=== PATIENT | female | born 1935 | race Caucasian/White ===

== ENCOUNTER 2017-12-23 20:09 | Emergency (ER) | payer MEDICARE, OTHER ==
[2017-12-23 20:20] VITALS: O2SAT 96
--- NOTE | 2017-12-23 21:05 | ERPHSYRPT ---
- History of Present Illness Time Seen by Provider: 12/23/17 21:00 Source: patient Exam Limitations: no limitations Patient Subjective Stated Complaint: PT STATES SHE WAS STEPPING OUT THE DOOR, FELT SLIGHTLY LIGHTHEADED, LOST HER BALANCE AND FELL FORWARD INTO A PORCHSWING AND THEN ROLLED OFF ONTO THE GROUND; CO LOW BACK PAIN DEVELOPMENT LEAD Triage Nursing Assessment: PT A&O X3; SKIN P, W, & D; NO OBVIOUS DISTRESS OR DISCOMFORT NOTED; FAMILY AT BEDSIDE; PT DENIES HITTING HER HEAD OR ANY LOSS OF CONSCIOUSNESS. Physician History: patient with chronic back pain presents to ED after fall walking out onto porch. Patient states upon arising she noted mild dizziness then stumbled down step hitting her back against swing. patient denies any head injuries or loss of consciousness. Denies any chest, abdominal,, pelvis or extremities injuries/ pain. Patient denies any chest pain, palpitation, short of breath, diaphoresis , nausea, vomiting, weakness, headache, no facial/focal deficit,, no abdominal/ back pain or urinary symptoms. Occurred: just prior to arrival Reason for Fall: lightheaded, lost balance Injuries/Pain Location: back Loss of Consciousness: no loss of consciousness Quality: aching Severity of Pain-Max: mild Severity of Pain-Current: mild Modifying Factors: Improves With: pain medication (Given Morphine by EMS) Associated Symptoms (Fall): back pain, lightheadedness, No extremity injury ( intermittent), No muscle spasms, No nausea, No shortness of breath, No slurred speech Allergies/Adverse Reactions: ceftriaxone sodium [From Rocephin] Allergy (Mild, Verified 10/17/13 22:22) Rash codeine Allergy (Mild, Verified 10/17/13 22:22) HALLUCINATE grapefruit Allergy (Mild, Verified 12/23/17 20:21) Iodinated Contrast- Oral and IV Dye Allergy (Mild, Verified 12/23/17 20:21) levofloxacin [From Levaquin] Allergy (Mild, Verified 10/17/13 22:22) CRAZY FEELING Home Medications: Aspirin 81 gm Chew [Baby Aspirin 81 mg Chew] 81 mg PO DAILY 10/17/13 [ History] Escitalopram Oxalate 10 mg [Lexapro 10 MG] 10 mg PO DAILY 10/17/13 [History] Lisinopril 10 mg [Zestril 10 MG] 20 mg PO DAILY 10/17/13 [History] Metoprolol Tartrate 25 mg [Lopressor 25MG Tab] 25 mg PO BID 10/17/13 [ History] Montelukast Sodium 10 mg [Singulair 10 MG] 10 mg PO DAILY 10/17/13 [History] Omeprazole 20 MG [Prilosec 20 mg] 40 mg PO DAILY 10/17/13 [History] Tramadol HCl 50 mg [Ultram 50 mg] 50 mg PO QID PRN 10/17/13 [History] Levothyroxine Sodium [Tirosint] 112 mcg PO DAILY 12/23/17 [History] Hx Tetanus, Diphtheria Vaccination/Date Given: Yes Hx Influenza Vaccination/Date Given: Yes Hx Pneumococcal Vaccination/Date Given: Yes Immunizations Up to Date: Yes - Review of Systems Constitutional: No Symptoms, No Fever, No Chills, No Weakness Eyes: No Symptoms Ears, Nose, & Throat: No Symptoms Respiratory: No Symptoms, No Cough, No Dyspnea Cardiac: No Symptoms, No Chest Pain, No Edema, No Syncope Abdominal/Gastrointestinal: No Symptoms, No Abdominal Pain, No Nausea, No Vomiting, No Diarrhea Genitourinary Symptoms: No Symptoms, No Dysuria Musculoskeletal: Back Pain, Fall, No Neck Pain Skin: No Symptoms, No Rash Neurological: No Dizziness, No Focal Weakness, No Headache, No Sensory Changes Psychological: No Symptoms Endocrine: No Symptoms Hematologic/Lymphatic: No Symptoms Immunological/Allergic: No Symptoms All Other Systems: Reviewed and Negative - Past Medical History Neurological History: No Pertinent History ENT History: Cataracts Cardiac History: Arrhythmia Respiratory History: No Pertinent History Endocrine Medical History: No Pertinent History, Hypothyroidism Musculoskeletal History: Arthritis, Other GI Medical History: No Pertinent History History: No Pertinent History Psycho-Social History: No Pertinent History Female Reproductive Disorders: No Pertinent History Other Medical History: DETERIATED DISK IN BACK - Past Surgical History Past Surgical History: Yes Cardiac: Internal Defibrillator, Pacemaker, Vascular Surgery Gastrointestinal: Appendectomy, Cholecystectomy Female Surgical History: Hysterectomy Other Surgical History: VEING STRIPPING TO LEFT LEG - Social History Smoking Status: Never smoker Exposure to second hand smoke: No Drug Use: none Patient Lives Alone: Yes - Female History Hx Last Menstrual Period: HYSTER - Nursing Vital Signs Nursing Vital Signs: Initial Vital Signs Temperature 97.9 F 12/23/17 20:12 Pulse Rate 60 12/23/17 20:12 Respiratory Rate 16 12/23/17 20:12 Blood Pressure 104/39 12/23/17 20:12 O2 Sat by Pulse Oximetry 96 12/23/17 20:12 Pain Scale Pain Intensity 0 - [place] Coma Score Best Eye Response ([place]): (4) open spontaneously Best Verbal Response ([place]): (5) oriented Best Motor Response ([place]): (6) obeys commands [place] Total: 15 - Physical Exam General Appearance: no apparent distress, alert Head Injury: no evidence of injury Eye Exam: PERRL/EOMI ENT Exam: airway nml Neck Exam: normal inspection, No tenderness Respiratory/Chest Exam: normal breath sounds, No chest tenderness, No respiratory distress Cardiovascular Exam: normal heart sounds, regular rate/rhythm Gastrointestinal Exam: soft, No tenderness, No distention, No guarding, No ecchymosis Back Exam: normal inspection, vertebral tenderness (minimal if any to upper lumbar area. Patient without any severe reaction to neck/spine palpation) Extremity Exam: normal inspection, normal range of motion, pelvis stable, No deformities Neurologic Exam: alert, oriented x 3, cooperative, sensation nml, No motor deficits Skin Exam: normal color, warm, dry SpO2: 96 Oxygen Delivery: Room Air - Course Nursing assessment & vital signs reviewed: Yes - Progress Progress: improved Progress Note: 12/23/17 21:07 offered x-rays of lumbar, but declined at this time due to minimal pain. Counseled pt/family regarding: diagnosis - Departure Time of Disposition: 21:07 Departure Disposition: Home Clinical Impression: Back contusion Condition: Stable Critical Care Time: No Referrals: DOCTOR,NO FAMILY [Primary Care Provider] - Instructions: Contusion (DC) Additional Instructions: May take Motrin 800 mg every 8 hours with food and/or Tylenol 1 g every 4 hours for pain/discomfort. Follow-up with your DrLove in 2-3 days. Return for worse pain, numbness, dizziness, weakness or any problems
[2017-12-23 21:15] VITALS: BP 108/66; PULSE 62
== END 2017-12-23 21:13 | disposition home or self-care (01) ==
LOC: ED 20:09
DX: S30.0XXA Contusion of lower back and pelvis, initial encounter (principal); R42 Dizziness and giddiness; Z79.899 Other long term (current) drug therapy; W18.30XA Fall on same level, unspecified, initial encounter; Y92.008 Other place in unspecified non-institutional (private) residence as the place of occurrence of the external cause
CPT/HCPCS: 99283

== ENCOUNTER 2017-12-27 23:38 | Observation (INO) | payer MEDICARE, OTHER ==
[2017-12-27] MEDS ORDERED: BABY ASPIRIN 81 MG CHEW PO ONE (23:42)
--- NOTE | 2017-12-27 23:58 | ERPHSYRPT ---
- History of Present Illness Time Seen by Provider: 12/27/17 23:53 Historian: patient Exam Limitations: no limitations Patient Subjective Stated Complaint: pt states she began feeling bad and having chest pain at approx 1800. states her pain radiates around lt side of chest and to back. Triage Nursing Assessment: pt alert and oriented, answers questions approp. respirations nonlabored. pt reports increased apin with inhalation. tenderness ntoed to lt side of back. bruising noted to bilat arms, chest- pt states from fall on monday. Physician History: 82-year-old white female with history of cataracts, arrhythmia, hypoglycemia, arthritis, degenerative disc disease, pacer defibrillator. She arrives with complaint of pain in her anterior chest radiating around to her left side symptoms since 6 PM she does state that she fell Monday she had soreness in the area however now at approximate 6 PM she had the pain described as above rated 10 out of 10 Now feeling better. 4 out of 10 she states she took one baby aspirin prior to arrival. She states she has no shortness of breath nausea or vomiting past medical history includes cataracts, arrhythmia, hypothyroidism, arthritis, degenerative disc disease. Past surgical history includes pacer defibrillator, vein stripping, appendectomy , cholecystectomy, hysterectomy. Social history patient denies tobacco alcohol or illicit drug use . Timing/Duration: other (fell last Monday 4 days ago soreness in his chest severe pain tonight at 6:30 PM) Activities at Onset: none Quality: sharpness Location: substernal, other (Substernal and left contreras) Chest Pain Radiation: no radiation Severity of Pain-Max: moderate Severity of Pain-Current: mild Modifying Factors: Improves With: nothing Associated Symptoms: hurts to breathe, No nausea, No vomiting, No palpitations, No heartburn, No abdominal pain, No shortness of breath, No cough, No diaphoresis, No chills, No fever, No fatigue, No weakness, No swelling/lump in chest, No syncope, No rash, No headache, No dizziness, No edema, No back pain Nitro Today/Relief: no nitro taken today Aspirin Treatment Today: 81 mg x 1 (81 mg at home), 81 mg x 3 (243 mg in the ER) Allergies/Adverse Reactions: ceftriaxone sodium [From Rocephin] Allergy (Mild, Verified 12/27/17 23:54) Rash codeine Allergy (Mild, Verified 12/27/17 23:54) HALLUCINATE grapefruit Allergy (Mild, Verified 12/27/17 23:54) Iodinated Contrast- Oral and IV Dye Allergy (Mild, Verified 12/27/17 23:54) levofloxacin [From Levaquin] Allergy (Mild, Verified 12/27/17 23:54) CRAZY FEELING Home Medications: Aspirin 81 gm Chew [Baby Aspirin 81 mg Chew] 81 mg PO DAILY 10/17/13 [ History] Escitalopram Oxalate 10 mg [Lexapro 10 MG] 10 mg PO DAILY 10/17/13 [History] Lisinopril 10 mg [Zestril 10 MG] 20 mg PO BID 10/17/13 [History] Metoprolol Tartrate 25 mg [Lopressor 25MG Tab] 25 mg PO BID 10/17/13 [ History] Montelukast Sodium 10 mg [Singulair 10 MG] 10 mg PO DAILY 10/17/13 [History] Omeprazole 20 MG [Prilosec 20 mg] 40 mg PO DAILY 10/17/13 [History] Tramadol HCl 50 mg [Ultram 50 mg] 50 mg PO QID PRN 10/17/13 [History] Levothyroxine Sodium [Tirosint] 112 mcg PO DAILY 12/23/17 [History] Atorvastatin Calcium [Lipitor] 80 mg PO DAILY 12/28/17 [History] Hx Tetanus, Diphtheria Vaccination/Date Given: Yes Hx Influenza Vaccination/Date Given: Yes Hx Pneumococcal Vaccination/Date Given: Yes Immunizations Up to Date: Yes - Review of Systems Constitutional: No Fever, No Chills Eyes: No Symptoms Ears, Nose, & Throat: No Symptoms Respiratory: No Cough, No Dyspnea Cardiac: Chest Pain Abdominal/Gastrointestinal: No Abdominal Pain, No Nausea, No Vomiting, No Diarrhea Genitourinary Symptoms: No Dysuria Musculoskeletal: No Back Pain, No Neck Pain Skin: No Rash Neurological: No Dizziness, No Focal Weakness, No Sensory Changes Psychological: No Symptoms Endocrine: No Symptoms All Other Systems: Reviewed and Negative (ccourse admit him) - Past Medical History Pertinent Past Medical History: Yes Neurological History: No Pertinent History ENT History: Cataracts Cardiac History: Arrhythmia Respiratory History: No Pertinent History Endocrine Medical History: No Pertinent History, Hypothyroidism Musculoskeletal History: Arthritis, Other GI Medical History: No Pertinent History History: No Pertinent History Psycho-Social History: No Pertinent History Female Reproductive Disorders: No Pertinent History Other Medical History: DETERIATED DISK IN BACK - Past Surgical History Past Surgical History: Yes Cardiac: Internal Defibrillator, Pacemaker, Vascular Surgery Gastrointestinal: Appendectomy, Cholecystectomy Female Surgical History: Hysterectomy Other Surgical History: VEIN STRIPPING TO LEFT LEG - Social History Smoking Status: Never smoker Exposure to second hand smoke: No Drug Use: none Patient Lives Alone: Yes (staying with family since monday) - Nursing Vital Signs Nursing Vital Signs: Initial Vital Signs Temperature 97.4 F 12/27/17 23:39 Pulse Rate 64 12/27/17 23:39 Respiratory Rate 20 12/27/17 23:39 Blood Pressure 142/54 12/27/17 23:39 O2 Sat by Pulse Oximetry 97 12/27/17 23:39 Pain Scale Pain Intensity 4 - Physical Exam General Appearance: moderate distress Eye Exam: PERRL/EOMI, eyes nml inspection Ears, Nose, Throat Exam: normal ENT inspection, moist mucous membranes Neck Exam: normal inspection, non-tender, supple, full range of motion Respiratory Exam: normal breath sounds, chest tenderness (tender left anterior chest left posterior chest), lungs clear, No respiratory distress Cardiovascular Exam: regular rate/rhythm, normal heart sounds Gastrointestinal/Abdomen Exam: soft, No tenderness, No mass Back Exam: normal inspection, No CVA tenderness, No vertebral tenderness Neurologic Exam: alert, oriented x 3, cooperative, workshop manager II-XII nml as tested, normal mood/affect, sensation nml, No motor deficits Skin Exam: normal color SpO2 Interpretation: normal (97%) SpO2: 97 Oxygen Delivery: Nasal Cannula - Course Nursing assessment & vital signs reviewed: Yes EKG Interpreted by Me: RATE (60 bpm), Other (EKG atrial paced rhythm 60 beats for minute axisSI/QIII pattern, no acute ST or T wave changes noted) - Radiology Exams Chest X-ray Interpretation: Interpreted by me, No Pneumonia, No Pneumothorax Ordered Tests: Active Orders 24 hr Category Date Time Status Packing Clerk STAT Care 12/27/17 23:42 Active EKG-ER Only STAT Care 12/27/17 23:42 Active IV Insertion STAT Care 12/27/17 23:45 Active Pulse Oximetry (ED) STAT Care 12/27/17 23:42 Active CHEST 1 VIEW (PORTABLE) Stat Exams 12/27/17 23:42 Taken AMYLASE Stat Lab 12/27/17 23:50 Completed CBC W DIFF Stat Lab 12/27/17 23:50 Completed CMP Stat Lab 12/27/17 23:50 Completed D-DIMER QUANTITATION Stat Lab 12/27/17 23:50 Completed LIPASE Stat Lab 12/27/17 23:50 Completed PROTIME WITH INR Stat Lab 12/27/17 23:50 Completed PTT Stat Lab 12/27/17 23:50 Completed Pot [Potassium] Stat Lab 12/28/17 01:30 Completed TROPONIN Q3H Lab 12/27/17 23:50 Completed TROPONIN Q3H Lab 12/28/17 01:30 Received TROPONIN Q3H Lab 12/28/17 05:45 Ordered TROPONIN Q3H Lab 12/28/17 08:45 Ordered TROPONIN Q3H Lab 12/28/17 11:45 Ordered Transfer Order Routine Transfer 12/28/17 Ordered Medication Summary Discontinued Medications Generic Name Dose Route Start Last Admin Trade Name Freq PRN Reason Stop Dose Admin Aspirin 243 mg 12/27/17 23:42 12/28/17 00:01 Baby Aspirin 81 Mg Chew PO 12/27/17 23:43 243 mg STAT ONE Administration Enoxaparin Sodium 70 mg 12/28/17 01:22 12/28/17 01:25 Enoxaparin Sodium 1 mg/kg (70 mg) 12/28/17 01:23 70 mg SQ Administration STAT ONE Enoxaparin Sodium Confirm 12/28/17 01:24 Enoxaparin Sodium Administered 12/28/17 01:25 Dose 120 mg SQ .STK-MED ONE Morphine Sulfate 2 mg 12/28/17 00:12 12/28/17 00:18 Morphine Sulfate 2 Mg Inj IV 12/28/17 00:13 2 mg STAT ONE Administration Morphine Sulfate Confirm 12/28/17 00:16 Morphine Sulfate 2 Mg Inj Administered 12/28/17 00:17 Dose 2 mg .ROUTE .STK-MED ONE Sodium Polystyrene Sulfonate 15 g 12/28/17 02:16 Kayexylate 15 Gm/60 Ml PO 12/28/17 02:17 STAT ONE Lab/Rad Data: Laboratory Result Diagrams 12/27/17 23:50 12/28/17 01:30 Laboratory Results 12/28/17 12/27/17 12/27/17 Range/Units 01:30 23:50 23:50 WBC (4.0-10.5) K/mm3 RBC (4.1-5.4) M/mm3 Hgb (12.0-16.0) gm/dl Hct (35-47) % MCV (78-100) fl MCH (26-32) pg MCHC (32-36) g/dl RDW (11.5-14.0) % Plt Count (150-450) K/mm3 MPV (6-9.5) fl Gran % (36.0-66.0) % Eos # (Auto) (0-0.5) Absolute Lymphs (auto) (1.0-4.6) Absolute Monos (auto) (0.0-1.3) Lymphocytes % (24.0-44.0) % Monocytes % (0.0-12.0) % Eosinophils % (0.00-5.0) % Basophils % (0.0-0.4) % Absolute Granulocytes (1.4-6.9) Basophils # (0-0.4) PT (9.95-12.35) SECONDS INR (0.8-3.0) APTT (25.3-37.0) SECONDS D-Dimer (215-500) ng/mL Sodium (137-145) mmol/L Potassium 6.5 H* (3.5-5.1) mmol/L Chloride (98-107) mmol/L Carbon Dioxide (22-30) mmol/L Anion Gap (5-15) MEQ/L BUN (7-17) mg/dL Creatinine (0.52-1.04) mg/dL Estimated GFR ML/MIN Glucose (74-106) mg/dL Calcium (8.4-10.2) mg/dL Total Bilirubin (0.2-1.3) mg/dL AST (14-36) U/L ALT (0-35) U/L Alkaline Phosphatase (38-126) U/L Troponin I < 0.012 (0.000-0.034) ng/mL Serum Total Protein (6.3-8.2) g/dL Albumin (3.5-5.0) g/dL Amylase 46 (30-110) U/L Lipase 115 (23-300) U/L 12/27/17 12/27/17 12/27/17 Range/Units 23:50 23:50 23:50 WBC 10.1 (4.0-10.5) K/mm3 RBC 3.99 L (4.1-5.4) M/mm3 Hgb 12.0 (12.0-16.0) gm/dl Hct 37.1 (35-47) % MCV 93.0 (78-100) fl MCH 30.0 (26-32) pg MCHC 32.3 (32-36) g/dl RDW 13.6 (11.5-14.0) % Plt Count 234 (150-450) K/mm3 MPV 10.0 H (6-9.5) fl Gran % 62.9 (36.0-66.0) % Eos # (Auto) 0.34 (0-0.5) Absolute Lymphs (auto) 2.15 (1.0-4.6) Absolute Monos (auto) 1.24 (0.0-1.3) Lymphocytes % 21.2 L (24.0-44.0) % Monocytes % 12.2 H (0.0-12.0) % Eosinophils % 3.4 (0.00-5.0) % Basophils % 0.3 (0.0-0.4) % Absolute Granulocytes 6.38 (1.4-6.9) Basophils # 0.03 (0-0.4) PT 11.6 (9.95-12.35) SECONDS INR 1.00 (0.8-3.0) APTT 38.1 H (25.3-37.0) SECONDS D-Dimer 1584 H* (215-500) ng/mL Sodium 143 (137-145) mmol/L Potassium 5.7 H (3.5-5.1) mmol/L Chloride 110 H (98-107) mmol/L Carbon Dioxide 23 (22-30) mmol/L Anion Gap 16.2 H (5-15) MEQ/L BUN 40 H (7-17) mg/dL Creatinine 1.84 H (0.52-1.04) mg/dL Estimated GFR 27.9 ML/MIN Glucose 120 H (74-106) mg/dL Calcium 9.1 (8.4-10.2) mg/dL Total Bilirubin 0.30 (0.2-1.3) mg/dL AST 28 (14-36) U/L ALT 31 (0-35) U/L Alkaline Phosphatase 195 H (38-126) U/L Troponin I (0.000-0.034) ng/mL Serum Total Protein 7.5 (6.3-8.2) g/dL Albumin 4.1 (3.5-5.0) g/dL Amylase (30-110) U/L Lipase (23-300) U/L - Progress Progress: improved Air Movement: fair Progress Note: 12/28/17 01:15 This is a 82-year-old white female with history of cataracts, arrhythmia, hypoglycemia, arthritis, degenerative disc disease who has a pacer defibrillator. She states that she fell Monday 4 days ago. Since falling she had some soreness in her anterior chest and along the left side. He states that this evening at approximately 6:30 PM she began to have severe sharp pain in her left anterior chest radiating to her left side she is somewhat with palpation in the anterior chest. She has no shortness breath or nausea. Patient's vital signs were stable patient with a EKG showing a atrial paced rhythm [address] or T-wave is noted. Patient's chest x-ray no acute disease process noted no pneumothorax pacer is in place. Patient's labs is a are remarkable for is elevated potassium of 5.7 sodium is 143 chloride is 110 bicarbonate 23 BUN 40 creatinine 1.84 glucose is 120 patient states she has had some chronic renal problems Patient's troponin is 0.012 Patient's d-dimer is elevated at 1584 Patient's amylase and lipase are normal Patient's white cell 10.1 hemoglobin 12 hematocrit 37.1 platelets 234 Patient is given aspirin 243 mg here in the emergency room she had taken 81 mg at home. She was also given morphine 2 mg IV patient expressed the desire to stay at this hospital she apparently is from [place]. I've discussed the case with Dr Shen. Will go ahead and give patient Lovenox 1 mg/kg subcutaneously every [address] to [address] patient on observation obtain serial cardiac enzymes. Will give patient normal saline 100 mL per hour in order to reduce the patient' s potassium. Orders have been placed to redraw the patient for a repeat potassium level. Patient appears to be in no acute distress at this time. Will plan to place on observation telemetry. . 12/28/17 02:17 Notified by patient's nurse the patient's repeat potassium is 6.5. Previous was listed at 5.7. Case was discussed with Dr. Joni Shen. Will give patient Kayexalate and repeat potassium in the morning. - Departure Time of Disposition: 01:19 Departure Disposition: Observation Clinical Impression: rule out ME, increased ddimer, History of recent fall Chest pain Qualifiers: Chest pain type: unspecified Qualified Code(s): R07.9 - Chest pain, unspecified Condition: Fair Critical Care Time: No
[2017-12-27 23:59] LABS: BASOPHIL % 0.3 % (0.0-0.4); Basophil (Absolute #) 0.03 (0-0.4); Eosinophil % 3.4 % (0.00-5.0); Eosinophil (Absolute #) 0.34 (0-0.5); Granulocyte Absolute (ANC) 6.38 (1.4-6.9); Granulocytes % 62.9 % (36.0-66.0); Hematocrit 37.1 % (35-47); Lymphocyte (Absolute #) 2.15 (1.0-4.6); Lymphocytes % 21.2 % (24.0-44.0); Mean Corpuscular Hgb Concent. 32.3 g/dl (32-36); Monocyte (Absolute #) 1.24 (0.0-1.3); Monocytes % 12.2 % (0.0-12.0); Platelet Count 234 K/mm3 (150-450); Red Blood Count 3.99 M/mm3 (4.1-5.4); Red Cell Distribution Width 13.6 % (11.5-14.0); White Blood Count 10.1 K/mm3 (4.0-10.5)
[2017-12-28] MEDS ORDERED: MORPHINE SULFATE 2 MG INJ IV ONE (00:12)
[2017-12-28] MEDS ORDERED: MORPHINE SULFATE 2 MG INJ ONE (00:16)
[2017-12-28 00:28] LABS: PTT 38.1 SECONDS (25.3-37.0)
[2017-12-28 00:30] LABS: ALBUMIN 4.1 g/dL (3.5-5.0); ANION GAP 16.2 MEQ/L (5-15); BILIRUBIN,TOTAL 0.3 mg/dL (0.2-1.3); Calcium 9.1 mg/dL (8.4-10.2); Creatinine 1 1.84 mg/dL (0.52-1.04); Potassium 5.7 mmol/L (3.5-5.1); Total Protein 7.5 g/dL (6.3-8.2)
[2017-12-28 00:35] LABS: AMYLASE 46 U/L (30-110); LIPASE 115 U/L (23-300)
[2017-12-28] MEDS ORDERED: ENOXAPARIN SODIUM SQ ONE ×2 (01:22→01:24)
[2017-12-28] MEDS ORDERED: Kayexylate 15 GM/60 ML PO ONE (02:16)
[2017-12-28] MEDS ORDERED: Sodium Chloride 0.9% 1000 ML 1,000 ML IV SCH (03:02)
[2017-12-28 05:53] LABS: BASOPHIL % 0.4 % (0.0-0.4); Basophil (Absolute #) 0.04 (0-0.4); Eosinophil % 3.2 % (0.00-5.0); Eosinophil (Absolute #) 0.34 (0-0.5); Granulocyte Absolute (ANC) 6.79 (1.4-6.9); Granulocytes % 62.9 % (36.0-66.0); Hematocrit 35.1 % (35-47); Hemoglobin 11.1 gm/dl (12.0-16.0); Lymphocyte (Absolute #) 2.14 (1.0-4.6); Lymphocytes % 19.9 % (24.0-44.0); Mean Cell Volume 94.1 fl (78-100); Mean Corpuscular Hgb Concent. 31.6 g/dl (32-36); Mean Platelet Volume 10.3 fl (6-9.5); Monocyte (Absolute #) 1.47 (0.0-1.3); Monocytes % 13.6 % (0.0-12.0); Platelet Count 219 K/mm3 (150-450); Red Blood Count 3.73 M/mm3 (4.1-5.4); Red Cell Distribution Width 13.7 % (11.5-14.0); White Blood Count 10.8 K/mm3 (4.0-10.5)
[2017-12-28 06:10] LABS: Mean Corpuscular Hemoglobin 29.7 pg (26-32)
[2017-12-28] MEDS ORDERED: BABY ASPIRIN 81 MG CHEW ONE (06:56)
[2017-12-28 07:27] LABS: ALBUMIN 3.4 g/dL (3.5-5.0); ANION GAP 14.8 MEQ/L (5-15); BILIRUBIN,TOTAL 0.3 mg/dL (0.2-1.3); Calcium 8.7 mg/dL (8.4-10.2); Creatinine 1 1.65 mg/dL (0.52-1.04); Potassium 5.8 mmol/L (3.5-5.1); Total Protein 6.6 g/dL (6.3-8.2)
[2017-12-28] MEDS: MORPHINE SULFATE 2 MG INJ IV PRN ×4 (08:29→23:40)
--- NOTE | 2017-12-28 09:14 | XRAY ---
Indication: Chest pain. Comparison: None Portable chest slightly underinflated with mild bibasilar infiltrates/atelectasis and small left effusion. Heart is not enlarged. Left-sided AICD. Moderate-sized hiatal hernia. Bony thorax intact with mild osteopenia and degenerative changes. Impression: Bibasilar infiltrates/atelectasis and small left effusion. Correlate clinically. Hiatal hernia. Comment: Pulmonary findings not reported on preliminary interpretation by the ER clinician. Telephone report given to Dr. Rodriguez in the ER at 0910 hrs. on December 28, 2017.
--- NOTE | 2017-12-28 09:50 | PCM.HP ---
History of Present Illness - Chief Complaint Chief Complaint: Chest Pain Date: 12/28/17 History of Present Illness: is a 82 year old female. from [place], [place] visiting family in [place] when she fell on Monday onto her left side off the top of 3 steps into a swing that broke her fall. She has been stiff and sore but yesterday at around 6pm she began having severe left sided chest pain radiating into her breast bone that continued to worsen and presented to the hospital around midnight. She denies shortness of breath or coughing. No fever or chills. She was not down on the ground for any extended period of time. she has been following with kidney specialists she states more recently for some abnormal kidney function and blood in the urine. She has been eating lots of watermelon and takes a multivitamin at home no other supplements. She has been on lisinopril for several years she thinks. No calf pain swelling or tenderness - Review of Systems Constitutional: No Fever, No Chills Eyes: No Symptoms Ears, Nose, & Throat: No Symptoms Respiratory: No Cough, No Short Of Breath Cardiac: Chest Pain, No Edema, No Syncope Abdominal/Gastrointestinal: No Abdominal Pain, No Nausea, No Vomiting, No Diarrhea Genitourinary Symptoms: No Dysuria Musculoskeletal: No Back Pain, No Neck Pain Skin: No Rash Neurological: No Dizziness, No Focal Weakness, No Sensory Changes Psychological: No Symptoms Endocrine: No Symptoms Hematologic/Lymphatic: No Symptoms Immunological/Allergic: No Symptoms Medications & Allergies Home Medications: Home Medication List Aspirin 81 gm Chew [Baby Aspirin 81 mg Chew] 81 mg PO DAILY 10/17/13 [ History Confirmed 12/28/17] Escitalopram Oxalate 10 mg [Lexapro 10 MG] 10 mg PO DAILY 10/17/13 [History Confirmed 12/28/17] Lisinopril 10 mg [Zestril 10 MG] 20 mg PO BID 10/17/13 [History Confirmed 12/28/17] Metoprolol Tartrate 25 mg [Lopressor 25MG Tab] 25 mg PO BID 10/17/13 [ History Confirmed 12/28/17] Montelukast Sodium 10 mg [Singulair 10 MG] 10 mg PO DAILY 10/17/13 [History Confirmed 12/28/17] Omeprazole 20 MG [Prilosec 20 mg] 40 mg PO DAILY 10/17/13 [History Confirmed 02/06] Tramadol HCl 50 mg [Ultram 50 mg] 100 mg PO HS 10/17/13 [History Confirmed 12/28/17] Levothyroxine Sodium [Tirosint] 112 mcg PO DAILY 12/23/17 [History Confirmed 02/06] Atorvastatin Calcium [Lipitor] 80 mg PO DAILY 12/28/17 [History Confirmed ] Cholecalciferol (Vitamin D3) [Vitamin D3] 2,000 unit PO DAILY 12/28/17 [History Confirmed 12/28/17] Allergies/Adverse Reactions: Allergies Allergy/AdvReac Type Severity Reaction Status Date / Time ceftriaxone sodium Allergy Mild Rash Verified 12/28/17 03:41 [From Rocephin] codeine Allergy Mild HALLUCINATE Verified 12/28/17 03:41 grapefruit Allergy Mild Verified 12/28/17 03:41 Iodinated Contrast- Oral and Allergy Mild Verified 12/28/17 03:41 IV Dye levofloxacin [From Levaquin] Allergy Mild CRAZY Verified 12/28/17 03:41 FEELING - Past Medical History Past Medical History: Yes Neurological History: No Pertinent History ENT History: Cataracts Cardiac History: Arrhythmia Respiratory History: No Pertinent History Endocrine Medical History: Hypothyroidism Musculoskelatal History: Arthritis, Other GI Medical History: No Pertinent History History: Other Pyscho-Social History: No Pertinent History Reproductive Disorders: No Pertinent History Comment: patient recently has kidney ultrasound due to blood in urine-no results yet, DETERIATED DISK IN BACK - Past Surgical History Past Surgical History: Yes Neuro Surgical History: No Pertinent History Cardiac History: Cardiac Catheterization, Internal Defibrillator, Pacemaker, Vascular Surgery Respiratory Surgery: No Pertinent History GI Surgical History: Appendectomy, Cholecystectomy Genitourinary Surgical Hx: No Pertinent History Musculskeletal Surgical Hx: No Pertinent History Female Surgical History: Hysterectomy Other Surgical History: VEIN STRIPPING TO LEFT LEG - Social History Smoking Status: Never smoker Exposure to second hand smoke: No Alcohol: None Drug Use: none - Physical Exam Vital Signs: Vital Signs - 24 hr Temp Pulse Pulse Resp BP Pulse Ox 12/28/17 08:00 97.5 F 61 18 108/52 96 12/28/17 07:33 96 12/28/17 05:40 98 12/28/17 03:32 97.0 F 62 16 150/64 94 L 12/28/17 03:08 97 12/28/17 03:02 92 L 12/28/17 02:52 62 18 110/64 94 L 12/28/17 01:35 66 22 112/76 97 12/28/17 00:39 66 18 142/54 94 L 12/28/17 00:12 96 12/27/17 23:47 64 12/27/17 23:39 97.4 F 64 20 142/54 97 Oxygen-Last 24 hours O2 Percentage 2 Liters = 28% O2 Percentage 2 Liters = 28% O2 Percentage 2 Liters = 28% General Appearance: no apparent distress, alert, obese Neurologic Exam: alert, oriented x 3, cooperative, normal mood/affect, nml cerebellar function, sensation nml, No motor deficits Eye Exam: PERRL/EOMI, eyes nml inspection Ears, Nose, Throat Exam: normal ENT inspection, TMs normal, pharynx normal, moist mucous membranes Neck Exam: normal inspection, non-tender, supple, full range of motion Respiratory Exam: normal breath sounds, lungs clear, No respiratory distress Cardiovascular Exam: regular rate/rhythm, normal heart sounds, normal peripheral pulses, other (pacemaker left upper chest tenderness of left chest wall reproducing pain.) Gastrointestinal/Abdomen Exam: soft, normal bowel sounds, No tenderness, No mass Back Exam: normal inspection, normal range of motion, No CVA tenderness, No vertebral tenderness Extremity Exam: normal inspection, normal range of motion, pelvis stable Skin Exam: normal color, warm, dry, No rash Lymphatic Exam: No adenopathy Results - Labs Lab/Micro Results: Lab Results-Last 24 Hours 12/27/17 12/27/17 12/27/17 Range/Units 23:50 23:50 23:50 WBC 10.1 (4.0-10.5) K/mm3 RBC 3.99 L (4.1-5.4) M/mm3 Hgb 12.0 (12.0-16.0) gm/dl Hct 37.1 (35-47) % MCV 93.0 (78-100) fl MCH 30.0 (26-32) pg MCHC 32.3 (32-36) g/dl RDW 13.6 (11.5-14.0) % Plt Count 234 (150-450) K/mm3 MPV 10.0 H (6-9.5) fl Gran % 62.9 (36.0-66.0) % Eos # (Auto) 0.34 (0-0.5) Absolute Lymphs (auto) 2.15 (1.0-4.6) Absolute Monos (auto) 1.24 (0.0-1.3) Lymphocytes % 21.2 L (24.0-44.0) % Monocytes % 12.2 H (0.0-12.0) % Eosinophils % 3.4 (0.00-5.0) % Basophils % 0.3 (0.0-0.4) % Absolute Granulocytes 6.38 (1.4-6.9) Basophils # 0.03 (0-0.4) PT 11.6 (9.95-12.35) SECONDS INR 1.00 (0.8-3.0) APTT 38.1 H (25.3-37.0) SECONDS D-Dimer 1584 H* (215-500) ng/mL Sodium 143 (137-145) mmol/L Potassium 5.7 H (3.5-5.1) mmol/L Chloride 110 H (98-107) mmol/L Carbon Dioxide 23 (22-30) mmol/L Anion Gap 16.2 H (5-15) MEQ/L BUN 40 H (7-17) mg/dL Creatinine 1.84 H (0.52-1.04) mg/dL Estimated GFR 27.9 ML/MIN Glucose 120 H (74-106) mg/dL Calcium 9.1 (8.4-10.2) mg/dL Total Bilirubin 0.30 (0.2-1.3) mg/dL AST 28 (14-36) U/L ALT 31 (0-35) U/L Alkaline Phosphatase 195 H (38-126) U/L Troponin I (0.000-0.034) ng/mL Serum Total Protein 7.5 (6.3-8.2) g/dL Albumin 4.1 (3.5-5.0) g/dL Amylase (30-110) U/L Lipase (23-300) U/L 12/27/17 12/27/17 12/28/17 Range/Units 23:50 23:50 01:30 WBC (4.0-10.5) K/mm3 RBC (4.1-5.4) M/mm3 Hgb (12.0-16.0) gm/dl Hct (35-47) % MCV (78-100) fl MCH (26-32) pg MCHC (32-36) g/dl RDW (11.5-14.0) % Plt Count (150-450) K/mm3 MPV (6-9.5) fl Gran % (36.0-66.0) % Eos # (Auto) (0-0.5) Absolute Lymphs (auto) (1.0-4.6) Absolute Monos (auto) (0.0-1.3) Lymphocytes % (24.0-44.0) % Monocytes % (0.0-12.0) % Eosinophils % (0.00-5.0) % Basophils % (0.0-0.4) % Absolute Granulocytes (1.4-6.9) Basophils # (0-0.4) PT (9.95-12.35) SECONDS INR (0.8-3.0) APTT (25.3-37.0) SECONDS D-Dimer (215-500) ng/mL Sodium (137-145) mmol/L Potassium (3.5-5.1) mmol/L Chloride (98-107) mmol/L Carbon Dioxide (22-30) mmol/L Anion Gap (5-15) MEQ/L BUN (7-17) mg/dL Creatinine (0.52-1.04) mg/dL Estimated GFR ML/MIN Glucose (74-106) mg/dL Calcium (8.4-10.2) mg/dL Total Bilirubin (0.2-1.3) mg/dL AST (14-36) U/L ALT (0-35) U/L Alkaline Phosphatase (38-126) U/L Troponin I < 0.012 < 0.012 (0.000-0.034) ng/mL Serum Total Protein (6.3-8.2) g/dL Albumin (3.5-5.0) g/dL Amylase 46 (30-110) U/L Lipase 115 (23-300) U/L 12/28/17 12/28/17 12/28/17 Range/Units 01:30 04:00 05:40 WBC (4.0-10.5) K/mm3 RBC (4.1-5.4) M/mm3 Hgb (12.0-16.0) gm/dl Hct (35-47) % MCV (78-100) fl MCH (26-32) pg MCHC (32-36) g/dl RDW (11.5-14.0) % Plt Count (150-450) K/mm3 MPV (6-9.5) fl Gran % (36.0-66.0) % Eos # (Auto) (0-0.5) Absolute Lymphs (auto) (1.0-4.6) Absolute Monos (auto) (0.0-1.3) Lymphocytes % (24.0-44.0) % Monocytes % (0.0-12.0) % Eosinophils % (0.00-5.0) % Basophils % (0.0-0.4) % Absolute Granulocytes (1.4-6.9) Basophils # (0-0.4) PT (9.95-12.35) SECONDS INR (0.8-3.0) APTT (25.3-37.0) SECONDS D-Dimer (215-500) ng/mL Sodium 143 (137-145) mmol/L Potassium 6.5 H* 5.8 H (3.5-5.1) mmol/L Chloride 110 H (98-107) mmol/L Carbon Dioxide 24 (22-30) mmol/L Anion Gap 14.8 (5-15) MEQ/L BUN 39 H (7-17) mg/dL Creatinine 1.65 H (0.52-1.04) mg/dL Estimated GFR 31.7 ML/MIN Glucose 105 (74-106) mg/dL Calcium 8.7 (8.4-10.2) mg/dL Total Bilirubin 0.30 (0.2-1.3) mg/dL AST 29 (14-36) U/L ALT 27 (0-35) U/L Alkaline Phosphatase 161 H (38-126) U/L Troponin I < 0.012 (0.000-0.034) ng/mL Serum Total Protein 6.6 (6.3-8.2) g/dL Albumin 3.4 L (3.5-5.0) g/dL Amylase (30-110) U/L Lipase (23-300) U/L 12/28/17 Range/Units 05:40 WBC 10.8 H (4.0-10.5) K/mm3 RBC 3.73 L (4.1-5.4) M/mm3 Hgb 11.1 L (12.0-16.0) gm/dl Hct 35.1 (35-47) % MCV 94.1 (78-100) fl MCH 29.7 (26-32) pg MCHC 31.6 L (32-36) g/dl RDW 13.7 (11.5-14.0) % Plt Count 219 (150-450) K/mm3 MPV 10.3 H (6-9.5) fl Gran % 62.9 (36.0-66.0) % Eos # (Auto) 0.34 (0-0.5) Absolute Lymphs (auto) 2.14 (1.0-4.6) Absolute Monos (auto) 1.47 H (0.0-1.3) Lymphocytes % 19.9 L (24.0-44.0) % Monocytes % 13.6 H (0.0-12.0) % Eosinophils % 3.2 (0.00-5.0) % Basophils % 0.4 (0.0-0.4) % Absolute Granulocytes 6.79 (1.4-6.9) Basophils # 0.04 (0-0.4) PT (9.95-12.35) SECONDS INR (0.8-3.0) APTT (25.3-37.0) SECONDS D-Dimer (215-500) ng/mL Sodium (137-145) mmol/L Potassium (3.5-5.1) mmol/L Chloride (98-107) mmol/L Carbon Dioxide (22-30) mmol/L Anion Gap (5-15) MEQ/L BUN (7-17) mg/dL Creatinine (0.52-1.04) mg/dL Estimated GFR ML/MIN Glucose (74-106) mg/dL Calcium (8.4-10.2) mg/dL Total Bilirubin (0.2-1.3) mg/dL AST (14-36) U/L ALT (0-35) U/L Alkaline Phosphatase (38-126) U/L Troponin I (0.000-0.034) ng/mL Serum Total Protein (6.3-8.2) g/dL Albumin (3.5-5.0) g/dL Amylase (30-110) U/L Lipase (23-300) U/L - Radiology Impressions Radiology Exams & Impressions: Radiology Procedures Category Date Time Status CHEST 1 VIEW (PORTABLE) Stat Exams 12/27/17 23:42 Completed PULMONARY PERF VENTILATION [NUCMED] Routine Exams 12/29/17 08:00 Ordered - Other Procedures and Tests Respiratory Therapy 12/28/17 07:44 Oxygen NASAL CANNULA 2 lpm Assessment/Plan (1) Hyperkalemia Current Visit: Yes Status: Acute Assessment & Plan: was up to 6.5 on admission improving after kayexalate continue gentle hydration with 0.45 NaCl at 100 mL/h hold lisinopril discussed stop multivitamin avoid potassium rich foods keep f/u with medical delivery driver f/u level in am baseline renal function unknown she has risk factor and + D Dimer will get VQ scan that can't be done tomorrow troponin trend negative she renal dosed lovenox 1mg/kg q24h for creat cl<30 Code(s): E87.5 - HYPERKALEMIA (2) Renal insufficiency Current Visit: Yes Status: Acute (3) Chest pain Current Visit: Yes Status: Acute Onset Date: ~12/28/17 Qualifiers: Chest pain type: unspecified Qualified Code(s): R07.9 - Chest pain, unspecified Code(s): R07.9 - CHEST PAIN, UNSPECIFIED (4) History of recent fall Current Visit: Yes Status: Acute Onset Date: ~12/28/17 Code(s): Z91.81 - HISTORY OF FALLING (5) Heart disease Current Visit: Yes Status: Chronic (6) Hypothyroid Current Visit: Yes Status: Chronic Code(s): E03.9 - HYPOTHYROIDISM, UNSPECIFIED
[2017-12-28] MEDS: ZOCOR 20MG PO SCH (11:10)
[2017-12-28] MEDS: ECOTRIN 81 MG PO SCH (11:11)
[2017-12-28] MEDS: Protonix 40MG Tablet PO SCH (11:13)
[2017-12-28] MEDS: VITAMIN D PO SCH (11:13)
[2017-12-28] MEDS: SYNTHROID 112 MCG PO SCH (11:40)
[2017-12-28] MEDS: Lopressor 25MG Tab PO SCH (21:49)
[2017-12-28] MEDS: PERCOCET TABLET 5/325MG PO PRN (21:50)
[2017-12-28] MEDS ORDERED: ENOXAPARIN SODIUM SQ SCH ×2 (22:00)
[2017-12-28] MEDS ORDERED: Ecotrin 325 MG PO SCH (22:00)
[2017-12-29] MEDS: PERCOCET TABLET 5/325MG PO PRN ×2 (03:58→10:43)
[2017-12-29 05:10] LABS: Hemoglobin 10.7 gm/dl (12.0-16.0); Mean Cell Volume 94.2 fl (78-100); Mean Corpuscular Hemoglobin 29.6 pg (26-32); Mean Corpuscular Hgb Concent. 31.5 g/dl (32-36); Platelet Count 205 K/mm3 (150-450); Red Blood Count 3.61 M/mm3 (4.1-5.4); Red Cell Distribution Width 13.4 % (11.5-14.0); White Blood Count 7.9 K/mm3 (4.0-10.5)
[2017-12-29 05:31] LABS: ANION GAP 10.5 MEQ/L (5-15); Calcium 8.5 mg/dL (8.4-10.2); Creatinine 1 1.21 mg/dL (0.52-1.04); Potassium 5.5 mmol/L (3.5-5.1)
[2017-12-29] MEDS: ECOTRIN 81 MG PO SCH ×2 (09:53→10:09)
[2017-12-29] MEDS: SYNTHROID 112 MCG PO SCH (09:53)
[2017-12-29] MEDS: Protonix 40MG Tablet PO SCH (09:53)
[2017-12-29] MEDS: VITAMIN D PO SCH (09:53)
[2017-12-29] MEDS: Lopressor 25MG Tab PO SCH (09:53)
[2017-12-29] MEDS: ZOCOR 20MG PO SCH ×2 (09:53→10:09)
[2017-12-29] MEDS ORDERED: NON-FORMULARY ITEM (Atorvastatin Calcium [Lipitor] 80 MG) PO SCH (10:00)
[2017-12-29] MEDS ORDERED: LEVOTHYROXINE SODIUM 112 MCG PO SCH (10:00)
[2017-12-29] MEDS ORDERED: NON-FORMULARY ITEM (Cholecalciferol (Vitamin D3) [Vitamin D3] 2,000 UNIT) PO SCH (10:00)
[2017-12-29] MEDS ORDERED: Lexapro 10 MG PO SCH (10:00)
[2017-12-29] MEDS ORDERED: NON-FORMULARY ITEM (Omeprazole 20 Mg [Prilosec 20 Mg] 40 MG) PO SCH (10:00)
[2017-12-29] MEDS ORDERED: Singulair 10 MG PO SCH (10:00)
--- NOTE | 2017-12-29 10:01 | XRAY ---
Indication: Central and left-sided chest pain. Short of breath. Elevated d-dimer. Patient received 5.2 mCi technetium 99 MAA for the perfusion portion exam. Patient inhaled 35.4 mCi aerosolized technetium 99 DTPA for the ventilation portion. Multi planar images obtained. Comparison: None Perfusion images demonstrates fairly homogeneous radiopharmaceutical activity with the exception of left sided pacemaker. Specifically no segmental/subsegmental perfusion defects. Ventilation images demonstrates diffusely heterogeneous radiopharmaceutical activity with greatest activity seen centrally favoring chronic obstructive disease. Also matched left-sided pacemaker defect. Impression: 1. No perfusion defects. 2. Ventilation images suggest chronic obstructive disease.
--- NOTE | 2017-12-29 11:56 | PCM.DCORD ---
- Discharge Discharge Date: 12/29/17 Disposition: Home, Self-Care Condition: Good Prescriptions: New Oxycodone/APAP 5 mg/325 mg [Percocet Tablet 5/325Mg] 1 tab PO Q4H PRN PRN #15 tablet MDD 6 PRN Reason: Pain Continue Tramadol HCl 50 mg [Ultram 50 mg] 100 mg PO HS Metoprolol Tartrate 25 mg [Lopressor 25MG Tab] 25 mg PO BID Montelukast Sodium 10 mg [Singulair 10 MG] 10 mg PO DAILY Omeprazole 20 MG [Prilosec 20 mg] 40 mg PO DAILY Aspirin 81 gm Chew [Baby Aspirin 81 mg Chew] 81 mg PO DAILY Escitalopram Oxalate 10 mg [Lexapro 10 MG] 10 mg PO DAILY Levothyroxine Sodium [Tirosint] 112 mcg PO DAILY Atorvastatin Calcium [Lipitor] 80 mg PO DAILY Cholecalciferol (Vitamin D3) [Vitamin D3] 2,000 unit PO DAILY Discontinued Lisinopril 10 mg [Zestril 10 MG] 20 mg PO BID Instructions: Chest Pain That Is Not Caused by the Heart (DC) Additional Instructions: Follow up with PCP Bibi Elizabeth in 1 week DORA Mora or web services manager Dr. Wagner Hogan [address] [place] [address] avoid excess potassium such as tomatoes until follow up appointment stop the lisinopril until follow up appointment Forms: Discharge Instructions
--- NOTE | 2017-12-29 12:02 | PCM.DS ---
Discharge Summary Date of Admission: 12/28/17 02:16 Date of Discharge: 12/29/17 Admitting Physician: AZAR PENA Primary Care Provider: NO FAMILY DOCTOR Allergies Allergies ceftriaxone sodium [From Rocephin] Allergy (Mild, Verified 12/28/17 03:41) Rash codeine Allergy (Mild, Verified 12/28/17 03:41) HALLUCINATE grapefruit Allergy (Mild, Verified 12/28/17 03:41) Iodinated Contrast- Oral and IV Dye Allergy (Mild, Verified 12/28/17 03:41) levofloxacin [From Levaquin] Allergy (Mild, Verified 12/28/17 03:41) [facility] Summary - Hospital Course Hospital Course: She is visiting her family in [place] and is from [place], [place] where her physicians are generally. She fell going down 3 steps at her brothers house falling on her left side into a swing. This caused pain on the left side of her body. She presented after the fall over concern if it dislodged her pacemaker and was sent home from ED since then she has been sore all over but the day prior to admission was having progressively worsening left sided chest pains. She was evaluated in ED and found to have renal insufficiency with unkown baseline creatinine and hyperkalemia. She had normal troponins trended out with atrial paced rhythm on ekg with no changes and d dimer was elevated. She was given kayexalate in ED and K improved from 6.5 to 5.7 and her lisionpril was stopped. She was given iv hydration with normal saline which improved renal function with creatine down to 1.2. Her blood pressure remained controlled off the linsinopril. She was kept overnight for availability of VQ scan which did not show any evidence of PE and ventillation images showing evidence of copd. She had the pain improved with percocet during the admission and short supply was given at discharge for musculoskeletal chest pain. SHe is to stay off her lisinopril and avoid potassium rich foods as discussed and repeat bmp in 1 week and set up appointment with her pcp and chicken hatchery helper. - Vitals & Intake/Output Vital Signs: Vital Signs Temperature 98.1 F 12/29/17 08:00 Pulse Rate 66 12/29/17 08:00 Respiratory Rate 18 12/29/17 08:00 Blood Pressure 112/60 12/29/17 08:00 O2 Sat by Pulse Oximetry 92 L 12/29/17 08:00 Oxygen-Last Documented O2 Percentage 2 Liters = 28% Intake & Output: Intake & Output 12/27/17 12/28/17 12/29/17 12/30/17 11:59 11:59 11:59 11:59 Intake Total 120 3156 Output Total 225 3050 Balance -105 106 Weight 76.6 kg 78.2 kg - Lab Result Diagrams: 12/29/17 04:46 12/29/17 04:46 Lab Results-Last 24 Hrs: Lab Results-Last 24 Hours 12/28/17 12/29/17 12/29/17 Range/Units 11:49 04:46 04:46 WBC 7.9 (4.0-10.5) K/mm3 RBC 3.61 L (4.1-5.4) M/mm3 Hgb 10.7 L (12.0-16.0) gm/dl Hct 34.0 L (35-47) % MCV 94.2 (78-100) fl MCH 29.6 (26-32) pg MCHC 31.5 L (32-36) g/dl RDW 13.4 (11.5-14.0) % Plt Count 205 (150-450) K/mm3 MPV 10.0 H (6-9.5) fl Sodium 138 (137-145) mmol/L Potassium 5.5 H (3.5-5.1) mmol/L Chloride 108 H (98-107) mmol/L Carbon Dioxide 25 (22-30) mmol/L Anion Gap 10.5 (5-15) MEQ/L BUN 24 H (7-17) mg/dL Creatinine 1.21 H (0.52-1.04) mg/dL Estimated GFR 45.3 ML/MIN Glucose 88 (74-106) mg/dL Calcium 8.5 (8.4-10.2) mg/dL Troponin I < 0.012 (0.000-0.034) ng/mL - Radiology Exams Ordered Rad Exams-Entire Visit: Radiology Procedures Category Date Time Status CHEST 1 VIEW (PORTABLE) Stat Exams 12/27/17 23:42 Completed PULMONARY PERF VENTILATION [NUCMED] Routine Exams 12/29/17 08:00 Completed - Procedures and Test Procedures and Tests throughout Hospitalization: Therapy Orders & Screens 12/28/17 07:44 Oxygen NASAL CANNULA 2 lpm Comment: Diagnosis: Chest Pain Discharge Exam General Appearance: no apparent distress, alert, obese Neurologic Exam: alert, oriented x 3, cooperative, normal mood/affect, nml cerebellar function, sensation nml, No motor deficits Skin Exam: normal color, warm, dry Eye Exam: PERRL, EOMI, eyes nml inspection Ears, Nose, Throat Exam: normal ENT inspection, pharynx normal, moist mucous membranes Neck Exam: normal inspection, non-tender, supple, full range of motion Respiratory Exam: normal breath sounds, lungs clear, No respiratory distress Cardiovascular Exam: regular rate/rhythm, normal heart sounds, other (pacemaker pain reproduced with palpation of chest diffusly) Gastrointestinal/Abdomen Exam: soft, No tenderness, No mass Extremity Exam: normal inspection, normal range of motion Back Exam: normal inspection, normal range of motion, No CVA tenderness, No vertebral tenderness Pelvic Exam: deferred Rectal Exam: deferred Final Diagnosis/Problem List - Final Discharge Diagnosis/Problem (1) Hyperkalemia Status: Acute (2) Renal insufficiency Status: Acute (3) Chest pain Status: Acute Onset Date: ~12/28/17 (4) History of recent fall Status: Acute Onset Date: ~12/28/17 (5) Heart disease Status: Chronic (6) Hypothyroid Status: Chronic - Discharge Discharge Date: 12/29/17 Disposition: Home, Self-Care Condition: Good Prescriptions: New Oxycodone/APAP 5 mg/325 mg [Percocet Tablet 5/325Mg] 1 tab PO Q4H PRN PRN #15 tablet MDD 6 PRN Reason: Pain Continue Tramadol HCl 50 mg [Ultram 50 mg] 100 mg PO HS Metoprolol Tartrate 25 mg [Lopressor 25MG Tab] 25 mg PO BID Montelukast Sodium 10 mg [Singulair 10 MG] 10 mg PO DAILY Omeprazole 20 MG [Prilosec 20 mg] 40 mg PO DAILY Aspirin 81 gm Chew [Baby Aspirin 81 mg Chew] 81 mg PO DAILY Escitalopram Oxalate 10 mg [Lexapro 10 MG] 10 mg PO DAILY Levothyroxine Sodium [Tirosint] 112 mcg PO DAILY Atorvastatin Calcium [Lipitor] 80 mg PO DAILY Cholecalciferol (Vitamin D3) [Vitamin D3] 2,000 unit PO DAILY Discontinued Lisinopril 10 mg [Zestril 10 MG] 20 mg PO BID Instructions: Chest Pain That Is Not Caused by the Heart (DC), Low Potassium Diet Additional Instructions: Follow up with PCP Bibi Elizabeth in 1 week DORA Mora or chicken hatchery helper Dr. Wagner Hogan [address] [place], [place] [address] avoid excess potassium such as tomatoes until follow up appointment stop the lisinopril until follow up appointment Follow up with: DOCTOR,NO FAMILY [Primary Care Provider] - 1 Week Forms: Discharge Instructions
[2017-12-29 12:31] VITALS: BP 122/58; PULSE 64; O2SAT 94
== END 2017-12-29 12:55 | disposition home or self-care (01) ==
LOC: ED 23:38 → MED SURG 12-28 02:16
PROVIDERS: ADMIT Family Medicine; ATTEND Family Medicine
DX: E87.5 Hyperkalemia (principal); N28.9 Disorder of kidney and ureter, unspecified; R07.9 Chest pain, unspecified; I51.9 Heart disease, unspecified; E03.9 Hypothyroidism, unspecified; Z79.899 Other long term (current) drug therapy
CPT/HCPCS: 36000; 36415; 71045; 78582; 80048; 80053; 82150; 82550; 83690; 84132; 84484; 85025; 85027; 85379; 85610; 85730; 93005; 93041; 93268; 94762; 96372; 96374; 99285; A9540; A9567; J1650; J2270; A9270-GY; G0378